=== PATIENT | female | born 1975 ===

== ENCOUNTER 2018-08-06 08:54 | Outpatient (CLI) | payer OTHER | END 2018-08-06 09:30 | disposition home or self-care (01) | LOC: NUCLEAR 08:54 | DX: E05.00 Thyrotoxicosis with diffuse goiter without thyrotoxic crisis or storm (principal) | CPT/HCPCS: 78012; A9531 ==

== ENCOUNTER → 2018-08-07 | Outpatient (CLI) | payer OTHER | END | disposition home or self-care (01) | LOC: NUCLEAR 09:19 | DX: E05.00 Thyrotoxicosis with diffuse goiter without thyrotoxic crisis or storm (principal) | CPT/HCPCS: 78013; A9512 ==